=== PATIENT | female | born 1990 | race African-American/Black ===

== ENCOUNTER 2018-06-17 04:12 | Emergency (ER) | payer MEDICARE, MEDICAID ==
[~2018-06-17] VITALS: Ht 167.6 cm; Wt 60.0 kg
[2018-06-17] MEDS ORDERED: DEXAMETHASONE 10 MG/ML VIAL IM ONE (05:00)
[2018-06-17 05:20] VITALS: BP 129/91
== END 2018-06-17 05:23 | disposition home or self-care (01) ==
LOC: ER 04:12
DX: J02.9 Acute pharyngitis, unspecified (principal); J45.909 Unspecified asthma, uncomplicated; Z88.0 Allergy status to penicillin
CPT/HCPCS: 96372; 99283; J1100

== ENCOUNTER 2018-06-21 20:01 | Emergency (ER) | payer MEDICARE, MEDICAID ==
[~2018-06-21] VITALS: Ht 162.6 cm; Wt 58.0 kg
[2018-06-21 20:21] VITALS: BP 133/89
== END 2018-06-21 22:45 | disposition home or self-care (01) ==
LOC: ER 20:01
DX: J02.8 Acute pharyngitis due to other specified organisms (principal); J45.909 Unspecified asthma, uncomplicated; F12.10 Cannabis abuse, uncomplicated; Z88.0 Allergy status to penicillin
CPT/HCPCS: 99281

== ENCOUNTER 2018-06-28 00:49 | Emergency (ER) | payer MEDICARE, MEDICAID ==
[~2018-06-28] VITALS: Ht 162.6 cm; Wt 58.0 kg
[2018-06-28] MEDS ORDERED: DEXAMETHASONE 10 MG/ML VIAL PO ONE (02:00)
[2018-06-28 03:19] VITALS: BP 129/81
== END 2018-06-28 03:23 | disposition home or self-care (01) ==
LOC: ER 00:49
DX: J02.9 Acute pharyngitis, unspecified (principal); J45.909 Unspecified asthma, uncomplicated; F12.10 Cannabis abuse, uncomplicated; Z88.0 Allergy status to penicillin
CPT/HCPCS: 81025; 99283; J1100

== ENCOUNTER 2018-06-28 23:55 | Emergency (ER) | payer MEDICARE, MEDICAID ==
[~2018-06-28] VITALS: Ht 162.6 cm; Wt 58.0 kg
[2018-06-29 05:49] VITALS: BP 117/79
== END 2018-06-29 05:52 | disposition home or self-care (01) ==
LOC: EDUNIT# 23:55 → ER 23:55
DX: J02.9 Acute pharyngitis, unspecified (principal); F12.10 Cannabis abuse, uncomplicated; Z88.0 Allergy status to penicillin
CPT/HCPCS: 87070; 87430; 99283

== ENCOUNTER 2018-07-05 02:07 | Emergency (ER) | payer MEDICARE, MEDICAID ==
[~2018-07-05] VITALS: Ht 162.6 cm; Wt 56.0 kg
[2018-07-05 07:03] VITALS: BP 114/74
== END 2018-07-05 07:15 | disposition home or self-care (01) ==
LOC: ER 02:07
DX: M79.18 Myalgia, other site (principal); R09.89 Other specified symptoms and signs involving the circulatory and respiratory systems; J45.909 Unspecified asthma, uncomplicated; F12.10 Cannabis abuse, uncomplicated
CPT/HCPCS: 81025; 99282

== ENCOUNTER 2020-05-20 22:05 | Emergency (ER) | payer MEDICARE, MEDICAID ==
[~2020-05-20] VITALS: Ht 160 cm; Wt 59.0 kg
[2020-05-20] MEDS ORDERED: KETOROLAC 30MG/ML VIAL IM ONE (23:15)
[2020-05-20 23:39] VITALS: BP 127/85
[2020-05-21] MEDS ORDERED: NAPR-420 MT (01:19)
== END 2020-05-21 01:36 | disposition home or self-care (01) ==
LOC: ER 22:05
DX: S20.212A Contusion of left front wall of thorax, initial encounter (principal); S50.02XA Contusion of left elbow, initial encounter; J45.909 Unspecified asthma, uncomplicated; V43.62XA Car passenger injured in collision with other type car in traffic accident, initial encounter; Y93.89 Activity, other specified; Y92.488 Other paved roadways as the place of occurrence of the external cause
CPT/HCPCS: 71101; 73080; 81025; 96372; 99284; J1885